=== PATIENT | female | born 1965 | race Caucasian/White ===

== ENCOUNTER 2017-12-18 18:43 | Emergency (ER) | payer MEDICAID, MEDICARE ==
[2017-12-18] MEDS ORDERED: NORMAL SALINE 1000 ML 1,000 ML IV ONE (19:04)
--- NOTE | 2017-12-18 19:05 | ER Document Report ---
ED Medical Screen (RME) - General Chief Complaint: Diarrhea Stated Complaint: DIARRHEA,FLANK PAIN,WEAKNESS Time Seen by Provider: 12/18/17 18:56 Notes: Patient is a 52-year-old female presents with 2 days of watery diarrhea and nausea. She was on amoxicillin 2 weeks ago for an ear infection before the symptoms started. She had a routine physical and blood work performed 3 days ago and was told that her kidney function test is abnormal. She has copy of her blood work and her creatinine is 1.5 GFR is 37. No known history of kidney issues. PE: Non-tender abdomen. RRR. I have greeted and performed a rapid initial assessment of this patient. A comprehensive ED assessment and evaluation of the patient, analysis of test results and completion of the medical decision making process will be conducted by additional ED providers. TRAVEL OUTSIDE OF THE [place] IN LAST 30 DAYS: No - Related Data Allergies/Adverse Reactions: gabapentin Allergy (Verified 12/18/17 19:01) lurasidone [From Latuda] Allergy (Verified 12/18/17 19:01) topiramate [From Topamax] Allergy (Verified 12/18/17 19:01) Physical Exam - Vital signs Vitals: Temp Pulse Resp BP Pulse Ox 98.0 F 73 16 124/61 98 12/18/17 18:50 12/18/17 18:50 12/18/17 18:50 12/18/17 18:50 12/18/17 18:50 Course - Vital Signs Vital signs: Temp Pulse Resp BP Pulse Ox 98.0 F 73 16 124/61 98 12/18/17 18:50 12/18/17 18:50 12/18/17 18:50 12/18/17 18:50 12/18/17 18:50
[2017-12-18 19:30] LABS: APPEARANCE,URINE SLIGHTLY-CLOUDY; BILIRUBIN,URINE NEGATIVE (NEGATIVE); COLOR,URINE YELLOW; GLUCOSE, URINE NEGATIVE (NEGATIVE); KETONES,URINE TRACE mg/dL (NEGATIVE); LEUKOCYTE ESTERASE,URINE NEGATIVE (NEGATIVE); NITRITE,URINE NEGATIVE (NEGATIVE); PROTEIN,URINE NEGATIVE (NEGATIVE); URINE SPECIFIC GRAVITY 1.017; UROBILINOGEN,URINE NEGATIVE mg/dL (<2.0)
[2017-12-18 19:44] LABS: ABSOLUTE BASOPHILS # (AUTO) 0.1 10^3/uL (0.0-0.2); ABSOLUTE EOSINOPHILS # (AUTO) 0.2 10^3/uL (0.0-0.6); ABSOLUTE LYMPHOCYTES (AUTO) 3.3 10^3/uL (0.5-4.7); ABSOLUTE MONOCYTES (AUTO) 0.7 10^3/uL (0.1-1.4); ABSOLUTE NEUT (AUTO) 7.4 10^3/uL (1.7-8.2); BASOPHILS % (AUTO) 0.7 % (0-2); HEMATOCRIT 36.7 % (36.0-47.0); HEMOGLOBIN 12.4 g/dL (12.0-15.5); LYMPHOCYTES % (AUTO) 28.5 % (13-45); MEAN CORPUSCULAR HEMOGLOBIN 31.7 pg (27.0-33.4); MEAN CORPUSCULAR HGB CONC 33.8 g/dL (32.0-36.0); MEAN CORPUSCULAR VOLUME 94 fl (80-97); MONOCYTES % (AUTO) 5.6 % (3-13); PLATELET COUNT 274 10^3/uL (150-450); RED BLOOD COUNT 3.92 10^6/uL (3.72-5.28); RED CELL DISTRIBUTION WIDTH 15.3 % (11.5-14.0); SEGMENTED NEUTROPHILS % (AUTO) 63.2 % (42-78); TOTAL CELLS COUNTED % (AUTO) 100 %; WHITE BLOOD COUNT 11.8 10^3/uL (4.0-10.5)
[2017-12-18 19:55] LABS: ALANINE AMINOTRANSFERASE 24 U/L (9-52); ALBUMIN 4.4 g/dL (3.5-5.0); ALKALINE PHOSPHATASE 66 U/L (38-126); ANION GAP 12 (5-19); ASPARTATE AMINO TRANSFERASE 26 U/L (14-36); BILIRUBIN,DIRECT 0.2 mg/dL (0.0-0.4); BILIRUBIN,TOTAL 0.2 mg/dL (0.2-1.3); BLOOD UREA NITROGEN 21 mg/dL (7-20); CALCIUM 9.4 mg/dL (8.4-10.2); CARBON DIOXIDE 24 mmol/L (22-30); CHLORIDE 106 mmol/L (98-107); GLUCOSE 95 mg/dL (75-110); POTASSIUM 3.7 mmol/L (3.6-5.0); SODIUM 141.8 mmol/L (137-145); TOTAL PROTEIN 7.4 g/dL (6.3-8.2)
[2017-12-18] MEDS ORDERED: DICYCLOMINE HCL 20 MG TABLET PO ONE (21:02)
[2017-12-18] MEDS ORDERED: ONDANSETRON 4 MG TAB.RAPDIS PO ONE (21:03)
--- NOTE | 2017-12-18 21:03 | ER Document Report ---
ED General - General Chief Complaint: Diarrhea Stated Complaint: DIARRHEA,FLANK PAIN,WEAKNESS Time Seen by Provider: 12/18/17 18:56 TRAVEL OUTSIDE OF THE [place] IN LAST 30 DAYS: No - HPI Patient complains to provider of: Diarrhea flank pain generalized weakness Quality of pain: Cramping Severity: Mild Pain Level: 2 Notes: Patient coming in today for the above-stated symptoms. States ongoing for the last 2 days. Patient states that she was on amoxicillin a few weeks ago. Patient denies any fevers chills nausea or vomiting. Patient resting company upon my evaluation. Denies any recent travel any pets patient denies any changes in her diet. Patient denies any dysuria denies any hematuria. States pain mostly with movement diarrhea occurs whenever she eats anything - Related Data Allergies/Adverse Reactions: gabapentin Allergy (Verified 12/18/17 19:01) lurasidone [From Latuda] Allergy (Verified 12/18/17 19:01) topiramate [From Topamax] Allergy (Verified 12/18/17 19:01) Past Medical History - Social History Smoking Status: Current Every Day Smoker Chew tobacco use (# tins/day): No Frequency of alcohol use: None Drug Abuse: None Family History: Reviewed & Not Pertinent Patient has suicidal ideation: No Patient has homicidal ideation: No Renal/ Medical History: Denies: Hx Peritoneal Dialysis Review of Systems - Review of Systems Constitutional: No symptoms reported EENT: No symptoms reported Cardiovascular: No symptoms reported Respiratory: No symptoms reported Gastrointestinal: Diarrhea Genitourinary: No symptoms reported Female Genitourinary: No symptoms reported Musculoskeletal: No symptoms reported Skin: No symptoms reported Hematologic/Lymphatic: No symptoms reported Neurological/Psychological: No symptoms reported Physical Exam - Vital signs Vitals: Temp Pulse Resp BP Pulse Ox 98.0 F 73 16 124/61 98 12/18/17 18:50 12/18/17 18:50 12/18/17 18:50 12/18/17 18:50 12/18/17 18:50 Interpretation: Normal - General General appearance: Appears well, Alert - HEENT Head: Normocephalic, Atraumatic Eyes: Normal Pupils: PERRL - Respiratory Respiratory status: No respiratory distress Chest status: Nontender Breath sounds: Normal Chest palpation: Normal - Cardiovascular Rhythm: Regular Heart sounds: Normal auscultation Murmur: No - Abdominal Inspection: Normal Distension: No distension Bowel sounds: Normal Tenderness: Nontender Organomegaly: No organomegaly - Back Back: Normal, Nontender - Extremities General upper extremity: Normal inspection, Nontender, Normal color, Normal ROM , Normal temperature General lower extremity: Normal inspection, Nontender, Normal color, Normal ROM , Normal temperature, Normal weight bearing. No: Dieudonne's sign - Neurological Neuro grossly intact: Yes Cognition: Normal Orientation: AAOx4 [place] Coma Scale Eye Opening: Spontaneous [place] Coma Scale Verbal: Oriented [place] Coma Scale Motor: Obeys Commands [place] Coma Scale Total: 15 Speech: Normal Motor strength normal: LUE, RUE, LLE, RLE Sensory: Normal - Psychological Associated symptoms: Normal affect, Normal mood - Skin Skin Temperature: Warm Skin Moisture: Dry Skin Color: Normal Course - Re-evaluation Re-evalutation: 12/18/17 23:04 Patient examination is otherwise benign. Patient was unable to give us a stool sample here. Laboratory studies not show significant leukocytosis and a UTI and electrolyte abnormalities. Patient was given a laboratory slip to have a stool obtained at home to return to ER for further testing. Patient states understanding. We will treat patient's flank pain which is crampy in nature with Bentyl more likely this is from colonic spasm. Patient also be given some nausea medication for home. Patient was encouraged to eat yogurt and starchy foods for diet control increase her fiber to help out with diarrhea. Patient discharged - Vital Signs Vital signs: Temp Pulse Resp BP Pulse Ox 97.9 F 65 18 121/68 97 12/18/17 21:34 12/18/17 21:34 12/18/17 21:34 12/18/17 21:34 12/18/17 21:34 - Laboratory Result Diagrams: 12/18/17 19:30 12/18/17 19:30 Laboratory results interpreted by me: 12/18/17 12/18/17 12/18/17 19:08 19:30 19:30 WBC 11.8 H RDW 15.3 H BUN 21 H Creatinine 1.35 H Est GFR ( Amer) 50 L Est GFR (Non-Af Amer) 42 L Urine Ketones TRACE H Urine Blood LARGE H Discharge - Discharge Clinical Impression: Diarrhea Qualifiers: Diarrhea type: unspecified type Qualified Code(s): R19.7 - Diarrhea, unspecified Condition: Good Disposition: HOME, SELF-CARE Instructions: Diarrhea, Nonspecific ([facility]) Additional Instructions: At this time your laboratory studies not showing signs of significant pathology. Highly recommended to return to the ER with a stool sample for further testing. Drink plenty of water and encourage you to eat yogurt also starchy foods to help out with her diarrhea. Return to the ER if symptoms worsen. Prescriptions: Dicyclomine HCl [Bentyl 20 mg Tablet] 20 mg PO QID #40 tablet Ondansetron [Zofran Odt] 4 mg PO Q6 PRN #30 tab.rapdis PRN Reason: For Nausea/Vomiting Forms: Follow-Up Outpatient Testing
[2017-12-18 21:39] VITALS: BP 121/68
== END 2017-12-18 22:08 | disposition home or self-care (01) ==
LOC: ER 18:43
DX: R19.7 Diarrhea, unspecified (principal); R10.9 Unspecified abdominal pain; R53.1 Weakness; F17.200 Nicotine dependence, unspecified, uncomplicated
CPT/HCPCS: 99284; 36415; 85025; 80053; 81001; A9270 ×2; J7030; J3490; S0119

== ENCOUNTER 2018-01-10 13:30 | Emergency (ER) | payer MEDICARE, MEDICAID ==
[2018-01-10 13:40] VITALS: BP 110/84
--- NOTE | 2018-01-10 14:12 | ER Document Report ---
ED General - General Chief Complaint: Flu Symptoms Stated Complaint: EAR PAIN,SINUS PAIN,BODY ACHES Time Seen by Provider: 01/10/18 14:02 Mode of Arrival: Ambulatory Information source: Patient Notes: 52-year-old female presents with complaints of sinus pressure drainage headache pressure in the ears, patient admits intermittent fevers admits to nausea vomiting generalized abdominal cramping TRAVEL OUTSIDE OF THE [place] IN LAST 30 DAYS: No - HPI Onset: Last week Onset/Duration: Persistent Quality of pain: Achy Severity: Mild Pain Level: 1 Associated symptoms: Nonproductive cough, Fever, Nausea, Vomiting, Sinus pain/ drainage Exacerbated by: Denies Relieved by: Denies Similar symptoms previously: No Recently seen / treated by doctor: No - Related Data Allergies/Adverse Reactions: gabapentin Allergy (Verified 01/10/18 13:56) lurasidone [From Latuda] Allergy (Verified 01/10/18 13:56) topiramate [From Topamax] Allergy (Verified 01/10/18 13:56) Past Medical History - Social History Smoking Status: Current Every Day Smoker Cigarette use (# per day): Yes Chew tobacco use (# tins/day): No Smoking Education Provided: No Frequency of alcohol use: None Drug Abuse: None Family History: Reviewed & Not Pertinent Patient has suicidal ideation: No Patient has homicidal ideation: No Renal/ Medical History: Denies: Hx Peritoneal Dialysis Psychiatric Medical History: Reports: Hx Attention Deficit Hyperactivity Disorder, Hx Bipolar Disorder, Hx Depression Past Surgical History: Reports: Hx Appendectomy, Hx Orthopedic Surgery Review of Systems - Review of Systems Notes: REVIEW OF SYSTEMS: CONSTITUTIONAL : Admits to intermittent fevers EENT: Admits sinus pressure pain CARDIOVASCULAR: Denies chest pain. Denies palpitations or racing or irregular heart beat. Denies ankle edema. RESPIRATORY: Denies cough, cold, or chest congestion. Denies shortness of breath, difficulty breathing, or wheezing. GASTROINTESTINAL: Admits nausea vomiting GENITOURINARY: Denies difficulty urinating, painful urination, burning, frequency, blood in urine, or discharge. FEMALE GENITOURINARY: Denies vaginal bleeding, heavy or abnormal periods, irregular periods. Denies vaginal discharge or odor. MUSCULOSKELETAL: Denies back or neck pain or stiffness. Denies joint pain or swelling. SKIN: Denies rash, lesions or sores. HEMATOLOGIC : Denies easy bruising or bleeding. LYMPHATIC: Denies swollen, enlarged glands. NEUROLOGICAL: Denies confusion or altered mental status. Denies passing out or loss of consciousness. Denies dizziness or lightheadedness. Denies headache. Denies weakness or paralysis or loss of use of either side. Denies problems with gait or speech. Denies sensory loss, numbness, or tingling. Denies seizures. PSYCHIATRIC: Denies anxiety or stress. Denies depression, suicidal ideation, or homicidal ideation. ALL OTHER SYSTEMS REVIEWED AND NEGATIVE. PHYSICAL EXAMINATION: GENERAL: Well-appearing, well-nourished and in no acute distress. HEAD: Atraumatic, normocephalic. EYES: Pupils equal round and reactive to light, extraocular movements intact, conjunctiva are normal. ENT: Admits to bilateral sinus pressure NECK: Normal range of motion, supple without lymphadenopathy LUNGS: Breath sounds clear to auscultation bilaterally and equal. No wheezes rales or rhonchi. HEART: Regular rate and rhythm without murmurs ABDOMEN: Soft, nontender, nondistended abdomen. No guarding, no rebound. No masses appreciated. Female : deferred Musculoskeletal: Normal range of motion, no pitting or edema. No cyanosis. NEUROLOGICAL: Cranial nerves grossly intact. Normal speech, normal gait. Normal sensory, motor exams PSYCH: Normal mood, normal affect. SKIN: Warm, Dry, normal turgor, no rashes or lesions noted. Dictation was performed using [employer] voice recognition software Physical Exam - Vital signs Vitals: Temp Pulse Resp BP Pulse Ox 98.8 F 82 16 110/84 98 01/10/18 13:37 01/10/18 13:37 01/10/18 13:37 01/10/18 13:37 01/10/18 13:37 Course - Re-evaluation Re-evalutation: 01/10/18 19:19 Patient's examination is most consistent with sinusitis, I explained to the patient that she probably has a viral sinusitis given that symptoms have only been going on for 4-5 days, she overall looks quite well, she was given antibiotics with close return precautions instructed not to start unless symptoms worsened After performing a Medical Screening Examination, I estimate there is LOW risk for ACUTE GLAUCOMA, TEMPORAL ARTERITIS, MENINGITIS, INCRANIAL HEMORRHAGE, or ISCHEMIC STROKE thus I consider the discharge disposition reasonable. I have reevaluated this patient multiple times and no significant life threatening changes are noted. The patient and I have discussed the diagnosis and risks, and we agree with discharging home with close follow-up with the understanding that symptoms and presentations can change. We also discussed returning to the Emergency Department immediately if new or worsening symptoms occur. We have discussed the symptoms which are most concerning (e.g., changing or worsening symptoms, new numbness or weakness, vomiting, fever) that necessitate immediate return. - Vital Signs Vital signs: Temp Pulse Resp BP Pulse Ox 98.8 F 82 16 110/84 98 01/10/18 13:37 01/10/18 13:37 01/10/18 13:37 01/10/18 13:37 01/10/18 13:37 Discharge - Discharge Clinical Impression: Respiratory tract congestion with cough, Nausea Sinusitis Qualifiers: Sinusitis location: frontal Chronicity: acute Recurrence: non-recurrent Qualified Code(s): J01.10 - Acute frontal sinusitis, unspecified Condition: Stable Disposition: HOME, SELF-CARE Instructions: Sinusitis ([facility]) Additional Instructions: Follow up with your physician tomorrow for further care or return to the ED IMMEDIATELY if symptoms worsen or new concerns occur. If you cannot afford to follow up with your primary care physician a list of low cost clinics have been provided at the end of your discharge papers as well. Prescriptions: Ondansetron HCl [Zofran 8 mg Tablet] 8 mg PO Q8HP PRN #14 tablet PRN Reason: Azithromycin 250 mg PO ASDIR PRN #6 tablet PRN Reason:
== END 2018-01-10 14:10 | disposition home or self-care (01) ==
LOC: ER 13:30
DX: J01.10 Acute frontal sinusitis, unspecified (principal); R05 Cough; R51 Headache; R11.2 Nausea with vomiting, unspecified; R10.84 Generalized abdominal pain; F17.210 Nicotine dependence, cigarettes, uncomplicated; Z88.6 Allergy status to analgesic agent; Z88.8 Allergy status to other drugs, medicaments and biological substances; Z90.49 Acquired absence of other specified parts of digestive tract
CPT/HCPCS: 99283

== ENCOUNTER 2019-12-02 18:04 | Emergency (ER) | payer MEDICARE, MEDICAID ==
[2019-12-02] MEDS ORDERED: ACETAMINOPHEN 325 MG TABLET PO ONE (18:22)
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
[2019-12-02] MEDS ORDERED: DIPH/PERTUSS(ACELL)/TETANUS VAC/PF 0.5 ML SYR (>=10YO) IM ONE (18:30)
[2019-12-02] MEDS ORDERED: CEPHALEXIN 500 MG CAPSULE PO ONE (18:30)
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
[2019-12-02 21:59] VITALS: BP 127/68
== END 2019-12-02 20:13 | disposition home or self-care (01) ==
LOC: ER 18:04
DX: S80.01XA Contusion of right knee, initial encounter (principal); S50.01XA Contusion of right elbow, initial encounter; S90.01XA Contusion of right ankle, initial encounter; S90.511A Abrasion, right ankle, initial encounter; S80.211A Abrasion, right knee, initial encounter; S50.311A Abrasion of right elbow, initial encounter; S09.90XA Unspecified injury of head, initial encounter; M25.531 Pain in right wrist; V19.9XXA Pedal cyclist (driver) (passenger) injured in unspecified traffic accident, initial encounter; F17.210 Nicotine dependence, cigarettes, uncomplicated; F31.9 Bipolar disorder, unspecified; Z79.899 Other long term (current) drug therapy; Z88.6 Allergy status to analgesic agent; Z88.8 Allergy status to other drugs, medicaments and biological substances
CPT/HCPCS: 99283; 73610; 73564; 73110; A9270